=== PATIENT | male | born 1975 | race Native Hawaiian/Other Pacific Islander ===

== ENCOUNTER 2016-07-21 23:37 | Outpatient (CLI) | payer BC | END 2016-07-21 23:46 | disposition short-term general hospital (02) | LOC: AMB 23:37 | DX: R55 Syncope and collapse (principal); R10.84 Generalized abdominal pain | CPT/HCPCS: A0425; A0427 ==

== ENCOUNTER 2016-07-21 23:46 | Emergency (ER) | payer BC ==
[~2016-07-21] VITALS: Ht 182.9 cm; Wt 113.4 kg
[2016-07-22 00:27] LABS: PLATELET COUNT 339 K/uL (142-355)
[2016-07-22 00:50] LABS: POTASSIUM 2.8 mmol/L (3.6-5.2); SODIUM 135 mmol/L (136-145)
[2016-07-22 02:39] VITALS: BP 110/72; TEMP 98.7
== END 2016-07-22 02:40 | disposition home or self-care (01) ==
LOC: ED 23:46
DX: K29.60 Other gastritis without bleeding (principal); B96.81 Helicobacter pylori [H. pylori] as the cause of diseases classified elsewhere; F10.10 Alcohol abuse, uncomplicated; R10.11 Right upper quadrant pain
CPT/HCPCS: 80053; 80307; 80320; 85027; 86318; 93005; 99284; G0479; Q9963

== ENCOUNTER 2017-02-21 13:05 | Outpatient (CLI) | payer BC | END 2017-02-21 14:10 | disposition home or self-care (01) | LOC: RESP 13:05 | DX: R06.02 Shortness of breath (principal) | CPT/HCPCS: 94640; 94664 ==

== ENCOUNTER 2018-07-25 09:53 | Emergency (ER) | payer BC ==
[~2018-07-25] VITALS: Ht 182.9 cm; Wt 123.4 kg
[2018-07-25 10:05] VITALS: TEMP 98.9
[2018-07-25 11:19] LABS: PLATELET COUNT 304 K/uL (142-355)
[2018-07-25 11:29] LABS: POTASSIUM 3.7 mmol/L (3.6-5.2); SODIUM 143 mmol/L (136-145)
[2018-07-25 15:01] VITALS: BP 118/73
== END 2018-07-25 15:02 | disposition home or self-care (01) ==
LOC: ED 09:53
PROVIDERS: Emergency Medicine
DX: R55 Syncope and collapse (principal); R56.9 Unspecified convulsions
CPT/HCPCS: 36415; 80053; 82550; 82553; 84484; 85027; 93005; 99283

== ENCOUNTER 2018-08-04 13:58 | Outpatient (CLI) | payer BC | END 2018-08-04 20:03 | disposition home or self-care (01) | LOC: RESP 13:58 | DX: J43.8 Other emphysema (principal) ==

== ENCOUNTER 2022-08-01 09:48 | Day surgery (SDC) | payer OTHER ==
[~2022-08-01] VITALS: Ht 165.1 cm; Wt 79.4 kg
== END 2022-08-01 12:30 | disposition home or self-care (01) ==
LOC: OR 09:48
PROVIDERS: ATTEND Internal Medicine Gastroenterology
PROC: 0DBK8ZZ Excision of Ascending Colon, Via Natural or Artificial Opening Endoscopic (ICD-10-PCS; principal; 2022-08-01)
PROC: 0DBN8ZZ Excision of Sigmoid Colon, Via Natural or Artificial Opening Endoscopic (ICD-10-PCS; 2022-08-01)
DX: D12.2 Benign neoplasm of ascending colon (principal); D12.5 Benign neoplasm of sigmoid colon; K63.5 Polyp of colon; K57.30 Diverticulosis of large intestine without perforation or abscess without bleeding; K64.8 Other hemorrhoids; Z12.11 Encounter for screening for malignant neoplasm of colon
CPT/HCPCS: J2704; J7120

== ENCOUNTER 2022-08-16 13:26 | Outpatient (CLI) | payer OTHER | END 2022-08-16 19:20 | disposition home or self-care (01) | LOC: LABW 13:26 | PROVIDERS: ATTEND Internal Medicine Gastroenterology | DX: K59.1 Functional diarrhea (principal) | CPT/HCPCS: 82272; 82656; 82705; 83630; 87015; 87045; 87324; 87328; 87329; 87449; 87899 ==

== ENCOUNTER 2023-01-01 10:23 | Outpatient (CLI) | payer OTHER | END 2023-01-01 19:14 | disposition home or self-care (01) | LOC: LABW 10:23 | PROVIDERS: ATTEND Nurse Practitioner Family | DX: J43.2 Centrilobular emphysema (principal); G60.9 Hereditary and idiopathic neuropathy, unspecified | CPT/HCPCS: 36415; 82607; 82746; 83036; 84165; 84207; 84425; 84443; 86334 ==

== ENCOUNTER 2023-01-02 09:13 | Outpatient (CLI) | payer OTHER | END 2023-01-02 19:56 | disposition home or self-care (01) | LOC: RESP 09:13 | PROVIDERS: ATTEND Internal Medicine Sleep Medicine | DX: J43.2 Centrilobular emphysema (principal) ==